=== PATIENT | female | born 1960 | race African-American/Black ===

== ENCOUNTER → 2018-11-01 | Outpatient (CLI) | payer BC ==
[2014-08-21 16:24] VITALS: BP 125/58
--- NOTE | 2018-11-01 09:31 | RAD ---
Thyroid ultrasound study without comparison for history of thyroid goiter, partial right thyroidectomy. TECHNIQUE AND FINDINGS: Real-time grayscale and color Doppler evaluation of the thyroid gland and adjacent soft tissues is performed. The right lobe of the thyroid measures 3.8 x 0.8 x 0.8 cm in the left measures 4.0 x 1.6 x 1.3 cm. On the right at the superior pole there is an ovoid circumscribed hypoechoic solid nodule measuring 0.9 x 0.6 x 0.7 cm with internal color flow. At the inferior pole there is an elongated ovoid nodule measuring 1.3 x 0.8 x 0.5 cm. This is also hypoechoic and well marginated, and demonstrates internal color flow. No suspicious characteristics pertaining to either nodule. On the left, at the upper pole there is a 2.1 x 1.5 x 0.9 cm homogeneously hyperechoic nodule with internal color flow. A similar-appearing nodule is seen at the inferior pole measuring 1.5 x 1.1 x 1.2 cm. Aside from size, no other suspicious features are identified. Superior to the thyroid gland, there is a heterogeneous and prominently hypoechoic circumscribed soft tissue mass with some internal cystic components, which measures 3.5 x 2.9 x 1.3 cm, and demonstrates internal color flow. This corresponds spatially to the area of iodine uptake on the patient's thyroid uptake scan dated 10/26/2018, and likely represents ectopic thyroid nodule. IMPRESSION: 1. There is a 3.5 cm heterogeneous supra thyroidal mass corresponding to an area of iodine uptake on the patient's recent uptake scan, which likely represents ectopic thyroid nodule. Given its size and extrathyroidal nature, fine-needle aspiration is recommended. 2. Multinodular goiter. Largest nodule measures 2.1 cm in the upper pole of the left thyroid gland. Electronically signed by: Jonathon La MD (11/01/2018 9:27 AM) [id number]
== END | disposition home or self-care (01) ==
LOC: US 08:44
PROVIDERS: ATTEND Specialist
DX: E04.2 Nontoxic multinodular goiter (principal); E07.89 Other specified disorders of thyroid
CPT/HCPCS: 76536

== ENCOUNTER 2018-12-20 09:47 | Day surgery (SDC) | payer BC ==
--- NOTE | 2018-12-20 06:38 | HP ---
ADMIT DATE: HISTORY OF PRESENT ILLNESS: The patient is referred because of a mass of the neck. Apparently, the history is that the patient has noticed this mass in the neck for about 3-4 years, is getting larger in size and she is referred by her primary care doctor for treatment. PAST MEDICAL HISTORY: Shows normal childhood diseases. PAST SURGICAL HISTORY: She has had a thyroidectomy done where they removed, I assume the right lobe of the thyroid, leaving the left at [facility] some years ago. She otherwise has had no other significant surgery. The patient does take medicines for arthritic pain for her knees and shoulder and she has had injections. ALLERGIES: The patient has no allergies. MEDICATIONS: She does not take medicine for anything, otherwise. FAMILY HISTORY: Positive in that she has 2 daughters that have goiters, but no one else in the family that she knows of. REVIEW OF SYSTEMS: Negative except for this mass, which was minimally painful, but just growing in size, and she wishes to have it dealt with. SOCIAL HISTORY: Does show that she drinks only socially and smokes cigarettes and marijuana. She did have a history of cocaine abuse, but that was 20-30 years ago and that has not been problem since then and she has been in rehab in the past. The patient has 3 children that are alive and well and as stated before, she does smoke about a pack of cigarettes per day and apparently she had the surgery at in 2005. REVIEW OF SYSTEMS: Negative. PHYSICAL EXAMINATION: GENERAL: Shows an alert female, in no acute distress. HEAD, EYES, EARS, NOSE AND THROAT: Grossly normal. NECK: Supple. She does have a 4 cm mass high up in the neck just over the Haja's apple. She does not have tenderness or redness over it. The remainder of the neck was unremarkable except for the scar from her previous surgery lower down on the neck. CHEST: Clear to auscultation bilaterally. HEART: Had no murmurs, heaves or rubs and the rate was 66 beats per minute and it was regular. ABDOMEN: Grossly normal. BREASTS: Not examined. IMPRESSION: Thyroid mass, ectopic. NATHAN DAVIES MD DR: JUDAH/earl JOB#: [id number] / [id number]
[~2018-12-20 09:47] MED LIST: HYDROmorphone 2 MG/ML VIAL IV PRN; IV RINGERS,LACTATED 1000ML 1,000 ML IV SCH; LIDOCAINE 1% PF 2 ML VIAL. ID PRN; MORPHINE SULFATE 2 MG/ML VIAL. IV PRN; ONDANSETRON PF 4 MG/2 ML VIAL. IV PRN; PROCHLORPERAZINE 10 MG/2 ML VIAL. IV PRN; fentaNYL PF VIAL 100 MCG/2 ML VIAL IV PRN
[2018-12-20] MEDS ORDERED: DIAZEPAM10 MG PO (10:10)
[2018-12-20] MEDS ORDERED: OXYC1TAB19 PO (10:11)
[2018-12-20] MEDS ORDERED: GABA800T5 PO (10:11)
[2018-12-20] MEDS ORDERED: MIDAZOLAM HCL/PF 2 MG/2 ML VIAL. ONE (10:55)
[2018-12-20] MEDS ORDERED: LIDOCAINE 2% PF 5 ML VIAL. ONE ×3 (10:55→14:02)
[2018-12-20] MEDS ORDERED: PROPOFOL 20 ML IV ONE (10:55)
[2018-12-20] MEDS ORDERED: PROPOFOL 0 ML IV ONE (10:55)
[2018-12-20] MEDS ORDERED: fentaNYL PF VIAL 250 MCG/5 ML VIAL ONE (10:55)
[2018-12-20] MEDS ORDERED: DEXAMETHASONE SOD PHOS 4 MG/ML VIAL ONE ×2 (10:55)
[2018-12-20] MEDS ORDERED: ONDANSETRON PF 4 MG/2 ML VIAL. ONE (10:55)
[2018-12-20] MEDS ORDERED: ROCURONIUM 50 MG/5 ML VIAL. ONE (10:56)
[2018-12-20 11:59] LABS: BASO % 1 % (0-3); EOS # 0.1 x10^3/uL (0.0-0.7); EOS % 2 % (0-3); HEMATOCRIT 46.2 % (36.0-47.0); HEMOGLOBIN 15.6 g/dL (12.0-15.5); LYMPH # 1.8 x10^3/uL (1.0-4.8); LYMPH % 28 % (24-48); MEAN CORPUSCULAR HEMOGLOBIN 30 pg (25-35); MEAN CORPUSCULAR HGB CONC 34 g/dL (31-37); MEAN CORPUSCULAR VOLUME 89 fL (79-100); MONO # 0.5 x10^3/uL (0.0-1.1); MONO % 8 % (0-9); NEUT % 61 % (31-73); PLATELET COUNT 204 x10^3/uL (140-400); RED BLOOD COUNT 5.21 x10^6/uL (3.50-5.40); RED CELL DISTRIBUTION WIDTH 14.4 % (11.5-14.5); WHITE BLOOD COUNT 6.5 x10^3/uL (4.0-11.0)
[2018-12-20 12:06] LABS: PROTHROMBIN TIME PATIENT 12.1 SEC (11.7-14.0)
--- NOTE | 2018-12-20 12:06 | PDOC ---
SURGICAL PROGRESS NOTE Subjective No change in dictated H&P. Vital Signs Vital Signs Date Time Temp Pulse Resp B/P (MAP) Pulse Ox O2 Delivery O2 Flow Rate FiO2 12/20/18 10:16 97.7 61 16 99 Room Air 97.7 Labs Laboratory Tests Test 12/20/18 10:30 White Blood Count 6.5 x10^3/uL (4.0-11.0) Red Blood Count 5.21 x10^6/uL (3.50-5.40) Hemoglobin 15.6 g/dL (12.0-15.5) Hematocrit 46.2 % (36.0-47.0) Mean Corpuscular Volume 89 fL (79-100) Mean Corpuscular Hemoglobin 30 pg (25-35) Mean Corpuscular Hemoglobin Concent 34 g/dL (31-37) Red Cell Distribution Width 14.4 % (11.5-14.5) Platelet Count 204 x10^3/uL (140-400) Neutrophils (%) (Auto) 61 % (31-73) Lymphocytes (%) (Auto) 28 % (24-48) Monocytes (%) (Auto) 8 % (0-9) Eosinophils (%) (Auto) 2 % (0-3) Basophils (%) (Auto) 1 % (0-3) Neutrophils # (Auto) 4.0 x10^3uL (1.8-7.7) Lymphocytes # (Auto) 1.8 x10^3/uL (1.0-4.8) Monocytes # (Auto) 0.5 x10^3/uL (0.0-1.1) Eosinophils # (Auto) 0.1 x10^3/uL (0.0-0.7) Basophils # (Auto) 0.0 x10^3/uL (0.0-0.2) Laboratory Tests Test 12/20/18 10:30 White Blood Count 6.5 x10^3/uL (4.0-11.0) Red Blood Count 5.21 x10^6/uL (3.50-5.40) Hemoglobin 15.6 g/dL (12.0-15.5) Hematocrit 46.2 % (36.0-47.0) Mean Corpuscular Volume 89 fL (79-100) Mean Corpuscular Hemoglobin 30 pg (25-35) Mean Corpuscular Hemoglobin Concent 34 g/dL (31-37) Red Cell Distribution Width 14.4 % (11.5-14.5) Platelet Count 204 x10^3/uL (140-400) Neutrophils (%) (Auto) 61 % (31-73) Lymphocytes (%) (Auto) 28 % (24-48) Monocytes (%) (Auto) 8 % (0-9) Eosinophils (%) (Auto) 2 % (0-3) Basophils (%) (Auto) 1 % (0-3) Neutrophils # (Auto) 4.0 x10^3uL (1.8-7.7) Lymphocytes # (Auto) 1.8 x10^3/uL (1.0-4.8) Monocytes # (Auto) 0.5 x10^3/uL (0.0-1.1) Eosinophils # (Auto) 0.1 x10^3/uL (0.0-0.7) Basophils # (Auto) 0.0 x10^3/uL (0.0-0.2) NATHAN DAVIES MD Dec 20, 2018 12:06
--- NOTE | 2018-12-20 12:09 | PDOC ---
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 Anesthesia........................................general Procedure.........................................excision mass of thyroid Drains..............................................none Blood loss........................................25cc Fluids...............................................see anesthesia sheet Condition...........................................satisfactory Vital Signs Vital Signs Date Time Temp Pulse Resp B/P (MAP) Pulse Ox O2 Delivery O2 Flow Rate FiO2 12/20/18 10:16 97.7 61 16 99 Room Air 97.7 Labs Laboratory Tests Test 12/20/18 10:30 White Blood Count 6.5 x10^3/uL (4.0-11.0) Red Blood Count 5.21 x10^6/uL (3.50-5.40) Hemoglobin 15.6 g/dL (12.0-15.5) Hematocrit 46.2 % (36.0-47.0) Mean Corpuscular Volume 89 fL (79-100) Mean Corpuscular Hemoglobin 30 pg (25-35) Mean Corpuscular Hemoglobin Concent 34 g/dL (31-37) Red Cell Distribution Width 14.4 % (11.5-14.5) Platelet Count 204 x10^3/uL (140-400) Neutrophils (%) (Auto) 61 % (31-73) Lymphocytes (%) (Auto) 28 % (24-48) Monocytes (%) (Auto) 8 % (0-9) Eosinophils (%) (Auto) 2 % (0-3) Basophils (%) (Auto) 1 % (0-3) Neutrophils # (Auto) 4.0 x10^3uL (1.8-7.7) Lymphocytes # (Auto) 1.8 x10^3/uL (1.0-4.8) Monocytes # (Auto) 0.5 x10^3/uL (0.0-1.1) Eosinophils # (Auto) 0.1 x10^3/uL (0.0-0.7) Basophils # (Auto) 0.0 x10^3/uL (0.0-0.2) Laboratory Tests Test 12/20/18 10:30 White Blood Count 6.5 x10^3/uL (4.0-11.0) Red Blood Count 5.21 x10^6/uL (3.50-5.40) Hemoglobin 15.6 g/dL (12.0-15.5) Hematocrit 46.2 % (36.0-47.0) Mean Corpuscular Volume 89 fL (79-100) Mean Corpuscular Hemoglobin 30 pg (25-35) Mean Corpuscular Hemoglobin Concent 34 g/dL (31-37) Red Cell Distribution Width 14.4 % (11.5-14.5) Platelet Count 204 x10^3/uL (140-400) Neutrophils (%) (Auto) 61 % (31-73) Lymphocytes (%) (Auto) 28 % (24-48) Monocytes (%) (Auto) 8 % (0-9) Eosinophils (%) (Auto) 2 % (0-3) Basophils (%) (Auto) 1 % (0-3) Neutrophils # (Auto) 4.0 x10^3uL (1.8-7.7) Lymphocytes # (Auto) 1.8 x10^3/uL (1.0-4.8) Monocytes # (Auto) 0.5 x10^3/uL (0.0-1.1) Eosinophils # (Auto) 0.1 x10^3/uL (0.0-0.7) Basophils # (Auto) 0.0 x10^3/uL (0.0-0.2) NATHAN BARGER MD Dec 20, 2018 12:09
[2018-12-20 12:12] LABS: CREATININE 0.9 mg/dL (0.6-1.0); GFR 77.8
[2018-12-20] MEDS ORDERED: THROMBIN TOPICAL 20,000 UNIT SPRAY.SYRN KIT TP ONE (12:14)
[2018-12-20] MEDS ORDERED: GELATIN SPONGE SIZE 4 SPONGE. ONE (12:14)
[2018-12-20 12:19] LABS: ALBUMIN/GLOBULIN RATIO 1.1 (1.0-1.7); TOTAL BILIRUBIN 0.3 mg/dL (0.2-1.0); TOTAL PROTEIN 7.7 g/dL (6.4-8.2)
[2018-12-20] MEDS ORDERED: GELATIN SPONGE SIZE 12-7MM SPONGE. ONE (12:20)
[2018-12-20 12:26] LABS: FREE T4 0.77 ng/dL (0.76-1.46); THYROID STIM HORMONE (TSH) 4.68 uIU/mL (0.358-3.74)
[2018-12-20] MEDS ORDERED: BUPIVAC MPF-EPI 0.5%-1:200000 30 ML VIAL. ONE (12:27)
[2018-12-20] MEDS ORDERED: KETAMINE HCL IN NACL, ISO-OSM 50 MG/5 ML SYRINGE ONE (12:38)
[2018-12-20] MEDS ORDERED: NEOSTIGMINE METHYLSULFATE 5 MG/5 ML SYRINGE. ONE (13:50)
[2018-12-20] MEDS ORDERED: SEVOFLURANE > 120 MINUTES. IH ONE (14:07)
[2018-12-20] MEDS ORDERED: oxyCODONE/APAP 5/325 1 TAB TABLET ONE (14:34)
[2018-12-20] MEDS ORDERED: oxyCODONE/APAP 7.5/325 1 TAB TABLET PO ONE (14:45)
[2018-12-20 14:52] VITALS: BP 135/63
--- NOTE | 2018-12-21 10:49 | OP ---
DATE OF SURGERY: SURGEON: Gage Davies MD PREOPERATIVE DIAGNOSIS: Tumor of thyroid, unusual location. POSTOPERATIVE DIAGNOSIS: Tumor of thyroid, unusual location. ANESTHESIA: General. PROCEDURE: Excision of ectopic lobe of the thyroid. TECHNIQUE: Under general anesthesia, the patient was properly prepped and draped in a routine fashion. ____ unit was available. The lesion was about 3-4 cm in the midline above where the thyroid normally sits. It was fairly movable, but did have some fibrous adhesions to the anterior portions of the trachea. As such, transverse incision was made with a 15 blade, carried over the mass in the direction of the skin lines. We went into the subcu using cautery down to the mass. The fascia over the mass was divided, picked up and opened with Metzenbaum scissors. We then spread and could see that the lesion was lobulated going mostly to the patient's left, but in the midline. It was about 4 cm in size and appeared to be looked like thyroid tissue. We slowly used finger dissection and Metzenbaums to go around the mass, which was somewhat difficult as we did not want to injure the underlying structures. It should be noted that we did go through the platysma muscle as we got down to this mass. Metzenbaum scissors were used along with Harmonic scalpel and cautery to slowly excise the mass from the underlying structures. One or two bleeders were cauterized as we got the major blood supply to it, which was seemed to come inferiorly and lateral. We slowly removed the mass in total and then sent it to the lab. The resultant defect was inspected. There was just minimal bleeding, which was controlled with cautery and also we used Gelfoam and thrombin. We removed the Gelfoam and thrombin, there was no further bleeding whatsoever and the patient had no problems with bleeding after that and we decided not to use a drain. We used 4-0 Vicryl to approximate the platysma muscles and then 5-0 Vicryl to approximate the subcuticular deep dermis, these were interrupteds 3 or 4 in nature. We then used 6-0 nylon to close the skin. The procedure was terminated and sterile dressings were applied. The blood loss was probably 10-15 mL. Fluids given can be obtained from the Anesthesia sheet. No drains were used and the condition of the patient was satisfactory as she was returned to the recovery room and it should be noted that her voice was normal post-procedure and she was awake and talking in a normal fashion. GAGE DAVIES MD DR: JUDAH/earl JOB#: [id number] / [id number]
--- NOTE | 2018-12-21 16:06 | PATHOLOGY ---
[facility] Accession Number: [id number] . 01 Material submitted: . thyroid gland - THYROID TISSUE . 01 Clinical history: . Thyroid mass . 02 Diagnosis: Thyroid and focal attached fibroadipose and skeletal muscle tissue, subtotal thyroidectomy: - Adenomatous (Colloid) nodule. LBQ/12/21/2018 . 02 Comment: There is no evidence of malignancy. There are no parathyroid glands identified. (JPM/db; 12/21/2018) . 02 Electronically signed: . Jono Salgado MD, Pathologist NPI- [id number] . 01 Gross description: . The specimen is received in formalin, labeled "Hernandez, Lavell, thyroid tissue", is a lobe of thyroid weighing 6 g and measuring 3.0 x 2.0 x 1.2 cm. The external surface is thao-brown, focally disrupted. There is a thao-pink, gelatinous nodule measuring 1.4 x 1.0 x 1.0 cm. The thyroid parenchyma is beefy-red. The specimen is entirely submitted in A1-A6. ([facility]; 12/20/2018) SHS/SHS . 02 Pathologist provided ICD-10: E04.1 . 02 CPT . 103420 Specimen Comment: A courtesy copy of this report has been sent to Specimen Comment: [phone], . Specimen Comment: Report sent to / DR TAN Performed at: 01 [facility] [address], [place] [id number] MD Jered Rivers MD Phone: [phone] Performed at: 02 [facility] [address] [place], [place] [id number] MD Jono Salgado MD Phone: [phone]
== END 2018-12-20 15:18 | disposition home or self-care (01) ==
LOC: SURG 09:47
PROVIDERS: ATTEND Specialist
DX: E04.1 Nontoxic single thyroid nodule (principal); F17.210 Nicotine dependence, cigarettes, uncomplicated; Z79.01 Long term (current) use of anticoagulants; Z72.89 Other problems related to lifestyle
CPT/HCPCS: 36415; 60220; 80053; 84439; 84443; 84481; 85025; 85610; A7015; J1100; J2001; J2250; J2405; J2704; J2710; J3010; J3490

== ENCOUNTER → 2019-03-28 | Outpatient (CLI) | payer BC ==
[~2019-03-28] MED LIST changes: +DIAZEPAM10 MG PO; +GABA800T5 PO; -HYDROmorphone 2 MG/ML VIAL IV PRN; -IV RINGERS,LACTATED 1000ML 1,000 ML IV SCH; -LIDOCAINE 1% PF 2 ML VIAL. ID PRN; -MORPHINE SULFATE 2 MG/ML VIAL. IV PRN; -ONDANSETRON PF 4 MG/2 ML VIAL. IV PRN; +OXYC1TAB19 PO; -PROCHLORPERAZINE 10 MG/2 ML VIAL. IV PRN; -fentaNYL PF VIAL 100 MCG/2 ML VIAL IV PRN
[2019-03-28 12:32] LABS: BASO # 0.1 x10^3/uL (0.0-0.2); BASO % 1 % (0-3); EOS # 0.1 x10^3/uL (0.0-0.7); EOS % 2 % (0-3); HEMATOCRIT 43.4 % (36.0-47.0); HEMOGLOBIN 14.8 g/dL (12.0-15.5); LYMPH # 2.4 x10^3/uL (1.0-4.8); LYMPH % 39 % (24-48); MEAN CORPUSCULAR HEMOGLOBIN 30 pg (25-35); MEAN CORPUSCULAR HGB CONC 34 g/dL (31-37); MEAN CORPUSCULAR VOLUME 89 fL (79-100); MONO # 0.5 x10^3/uL (0.0-1.1); MONO % 9 % (0-9); NEUT % 50 % (31-73); PLATELET COUNT 189 x10^3/uL (140-400); RED CELL DISTRIBUTION WIDTH 14.3 % (11.5-14.5); WHITE BLOOD COUNT 6.1 x10^3/uL (4.0-11.0)
[2019-03-28 12:52] LABS: ALBUMIN 3.9 g/dL (3.4-5.0); ALBUMIN/GLOBULIN RATIO 1.1 (1.0-1.7); CALCIUM 9.5 mg/dL (8.5-10.1); GFR 68.7; POTASSIUM 4.3 mmol/L (3.5-5.1); TOTAL BILIRUBIN 0.2 mg/dL (0.2-1.0); TOTAL PROTEIN 7.5 g/dL (6.4-8.2)
[2019-03-28 12:56] LABS: CHOLESTEROL/HDL RATIO 4.1
--- NOTE | 2019-03-28 17:12 | RAD ---
Exam: Thoracic spine Date: 03/28/2019 12:00 AM CLINICAL HISTORY: DJD back pain COMPARISON: None available. FINDINGS: AP and lateral/swimmers views of the thoracic spine submitted. There is mild superimposed artifact at the cervicothoracic junction on the lateral view per technique. Mild to moderate disc height loss at multiple levels throughout the thoracic spine. Anterior plate osteophytes are seen at the mid and distal thoracic vertebral levels. No spondylolisthesis. Vertebral body heights are preserved. Negative focal paraspinal line deviation/hematoma. IMPRESSION: 1. Multilevel spondylosis as above 2. Negative acute fracture or subluxation. EXAM: AP, lateral and lumbosacral spot views of the lumbar spine DATE: 03/28/2019 12:00 AM INDICATION: Low back pain COMPARISON: No Prior FINDINGS: 5 nonrib-bearing lumbar-type vertebral bodies. Vertebral body heights are preserved. Disc heights are preserved. Advanced facet degenerative change L2-3 and below. Endplate osteophytes are seen multiple levels. Atherosclerotic vascular calcifications are seen. IMPRESSION: 1. Multilevel spondylosis as above 2. Negative acute fracture or subluxation. Electronically signed by: Marcelino Spencer MD (03/28/2019 5:09 PM) [facility]
--- NOTE | 2019-03-28 17:13 | RAD ---
EXAM: 3 VIEWS BILATERAL SHOULDERS DATE: 03/28/2019 12:00 AM INDICATION: Shoulder pain, degenerative change COMPARISON: No Prior FINDINGS: Right: There is no evidence for acute fracture or dislocation. AC joint is congruent. Small AC joint osteophytes. Glenohumeral joint degenerative changes are seen. Humeral head is not high riding. Left: There is no evidence for acute fracture or dislocation. AC joint is congruent. Glenohumeral joint degenerative changes are seen. Humeral head is not high riding. Vascular calcifications are seen within the aorta. IMPRESSION: 1. No acute fracture or dislocation. 2. Bilateral glenohumeral joint degenerative changes with inferior projecting osteophytes. 3. Right AC joint degenerative change. Electronically signed by: Marcelino Spencer MD (03/28/2019 5:10 PM) [facility]
--- NOTE | 2019-03-28 17:25 | RAD ---
EXAM: 3 views both knees DATE: 03/28/2019 12:00 AM INDICATION: DJD COMPARISON: No Prior FINDINGS: Right knee: Mild medial compartment joint space narrowing with tricompartmental osteophytes. No joint effusion. Patellar enthesopathy. No evidence of acute fracture or dislocation. Left knee: No evidence of acute fracture or dislocation. Joint spaces are preserved without significant degenerative/proliferative change. Patellar enthesopathy. No joint effusion. IMPRESSION: 1. No evidence of acute fracture or dislocation. 2. Patellar enthesopathy. 3. Right knee joint osteoarthritis. Electronically signed by: Marcelino Spencer MD (03/28/2019 5:22 PM) [facility]
[2019-03-29 00:07] LABS: HEMOGLOBIN A1C 5.4 % (4.8-5.6)
[2019-03-29 02:08] LABS: THYROXINE 5.4 ug/dL (4.5-12.0)
--- NOTE | 2019-03-29 10:50 | RAD ---
DATE: 03/28/2019 11:16 AM EXAM: MAMMO CHRIS SCREENING BILATERAL HISTORY: routine screening evaluation. COMPARISON: None available Bilateral CC and MLO views of the breasts were performed. Bilateral breast tomosynthesis was performed in CC and MLO projections. This study was interpreted with the benefit of Computerized Aided Detection (CAD). FINDINGS: Breast Density: SCATTERED The breast parenchyma shows scattered fibroglandular densities. Breast parenchyma level B Benign calcifications are present. No suspicious masses, microcalcifications or architectural distortion is present to suggest malignancy in either breast. The visualized axillae are unremarkable. IMPRESSION: No mammographic evidence of malignancy. BI-RADS CATEGORY: 2 BENIGN FINDING(S) RECOMMENDED FOLLOW-UP: 12M 12 MONTH FOLLOW-UP Annual screening mammography is recommended, unless clinically indicated sooner based on symptoms or change in physical exam. PQRS compliance statement: Patient information was entered into a reminder system with a target due date for the next mammogram. Mammography is a sensitive method for finding small breast cancers, but it does not detect them all and is not a substitute for careful clinical examination. A negative mammogram does not negate a clinically suspicious finding and should not result in delay in biopsying a clinically suspicious abnormality. "Our facility is accredited by the [employer] Mammography Program."
== END | disposition home or self-care (01) ==
LOC: RAD 10:52
PROVIDERS: ATTEND Surgery
DX: Z12.31 Encounter for screening mammogram for malignant neoplasm of breast (principal); M47.815 Spondylosis without myelopathy or radiculopathy, thoracolumbar region; M19.011 Primary osteoarthritis, right shoulder; M17.11 Unilateral primary osteoarthritis, right knee; M76.892 Other specified enthesopathies of left lower limb, excluding foot; M76.891 Other specified enthesopathies of right lower limb, excluding foot; M25.711 Osteophyte, right shoulder; M25.761 Osteophyte, right knee; M25.78 Osteophyte, vertebrae; N64.89 Other specified disorders of breast; I70.0 Atherosclerosis of aorta
CPT/HCPCS: 36415; 72072; 72100; 73030; 73562; 77063; 77067; 80053; 80061; 82306; 83036; 84436; 84443; 84480; 85025